=== PATIENT | male | born 1960 | race Caucasian/White ===

== ENCOUNTER 2016-08-01 18:47 | Observation (INO) | payer OTHER ==
--- NOTE | ~2016-08-01 | CR72 ---
[facility] A Service of [facility] RADIOLOGY TEXT RESULTS PATIENT: REYNOLD MARTIN LOCATION: [facility] : 60 UNIT #: [id number] AGE: [address]: Castillo Warner MD SEX: M ORDER DR: [id number] [place], [place] [address] [id number] MR#: [id number] #: [id number] NAME: REYNOLD MARTIN. : 1960 SEX: M STUDY DATE/TIME: 08/01/2016 18:23 UNIT: [facility] ROOM: [facility] STUDY DESCRIPTION: CR Chest Single View Portable Attending Physician: Castillo Warner M.D. Ordering Physician: Lobo Aguilera M.D. Primary Care Physician: Regla Treviño M.D. MEDICAL IMAGING REPORT This report is preliminary unless electronic signature is present EXAM Portable chest INDICATION Pacemaker vibrating today. PROCEDURE Frontal view of the chest COMPARISON 08/12/2010 FINDINGS Single lead pacer AICD is in place and appears to be stable. Stable cardiomegaly. There is no new dense consolidation. No visible pneumothorax. IMPRESSION 1. No active process. No appreciable change in the placement of the patient's pacemaker. 2. Stable cardiomegaly. Dictated by... Nilo Dunham M.D. THIS IS AN ELECTRONICALLY VERIFIED REPORT Nilo Dunham M.D. at 08/05/2016 7:05 AM ANGELA/charles TD: 08/02/2016 08:08 JOB #: [id number] MEDICAL IMAGING REPORT [facility] A Service of [facility] RADIOLOGY TEXT RESULTS PATIENT: REYNOLD MARTIN LOCATION: [facility] : 60 UNIT #: [id number] AGE: [address]: Castillo Warner MD SEX: M ORDER DR: Page 1 of 1 COPY
--- NOTE | ~2016-08-01 | BMI ---
[facility] Nutrition Therapy DATE: 08/02/16 Patient: REYNOLD MARTIN Physician: MIKE Address: [address] [facility] Room/Bed: [address] [place] [address], Zip: [place] [address] Admit Date: 08/01/16 Date of : 60 Height: 5 6 Weight: 278 126.4 HIGH BMI NOTE: DX: 56 Y.O. MALE ADMITTED FOR MECHANICAL PACEMAKER FAILURE ANTHROPOMETRICS: 5'7" (PER PT), WT: 278# (126 KG), BMI: 43.5 DIET: NPO INTERVENTION: 1. NPO RECOMMENDATIONS: 1. ONCE MEDICALLY FEASIBLE, ADVANCE DIET INDICATED TO HH TO PROMOTE GRADUAL WEIGHT LOSS TOWARDS HEALTHY BMI (19.0-25.0) OR +/-10%IBW RD WILL F/U PER PROTOCOL Respectfully, BREANNA SMALL MS, RD, LD [facility] cc: client file
--- NOTE | ~2016-08-01 | EKG ---
PATIENT: REYNOLD MARTIN UNIT #: [id number] Ventricular Rate: 62 BPM Atrial Rate: 64 BPM QRS Duration: 178 ms Q-T Interval: 450 ms QTC Calculation(Bezet): 456 ms Calculated R Lagrange: -74 degrees Calculated T Lagrange: 76 degrees Diagnosis Line: Ventricular-paced rhythm with occasional Diagnosis Line: supraventricular complexes and Diagnosis Line: Electronic ventricular pacemaker Diagnosis Line: Abnormal ECG Diagnosis Line: When compared with ECG of 12-AUG-2010 03:16, Diagnosis Line: Vent. rate has decreased BY 11 BPM Diagnosis Line: Confirmed by PINKY ACOSTA MD ([id number]) on 08/01/2016 Diagnosis Line: 9:23:21 PM INTERPRETING MD: DAVE TOM
--- NOTE | ~2016-08-01 | DS ---
Unit #: [id number] #: [id number] Patient: REYNOLD MARTIN [id number] [facility]. [id number] [facility]. [place], [place] [address] [id number] MR#: [id number] NAME: REYNOLD MARTIN. ROOM: 565 Age: 56 Sex: M Admission Date: 08/01/2016 : 1960 Discharge Date: Attending Physician: Castillo Warner M.D. Primary Care Physician: Regla Treviño M.D. DISCHARGE SUMMARY SHORT STAY/TRANSFER SUMMARY HISTORY OF PRESENT ILLNESS This is a 56-year-old white male who has a defibrillator and follows with Dr. Pacheco. Looking back on his records, it is for arrhythmias. He had a stent placed before 2008 in his diagonal branch of the LAD. He also some moderate disease of the LAD which was not stented. He has a history of paroxysmal atrial fibrillation and has been on Coumadin. His last echo last November showed LVEF of 55% to 60%. He is a diabetic and has hypertension, hyperlipidemia, obstructive sleep apnea, and chronic kidney disease. Patient came in because he felt his defibrillator device in the battery vibrating and buzzing. He had it last checked about six months ago, and he was told he may have to have the generator replaced this fall. He denies any chest pain or pain in his neck or bilateral jaw, shoulders, arms, or elbows. He said when the buzzing and vibrating did occur, he felt a little numbness and tingling up in his head, but as soon as it stopped buzzing and vibrating, the symptoms resolved. He denies having any dizziness, presyncope, or syncope. He denies any palpitations. He is on disability. He has been recently using a walker and crutches because he needs both his knees and hips replaced, but his plan is to try to lose about 100 pounds before this type of surgery. In the emergency room, patient's blood pressure was 169/76, heart rate 58, respirations 18, temperature 98, and O2 saturations 96% on room air. His EKG showed ventricular-paced rhythm, underlying appears to be atrial fibrillation. On patient's initial labs, his INR was 5.3. BUN was 17, creatinine 1.2, and potassium 4.1. On CBC, his platelets were 130,000, otherwise unremarkable. Patient's chest x-ray did not show anything acute. EKG as mentioned does show ventricular paced with underlying atrial fibrillation. Patient has been admitted for further evaluation and management. PAST MEDICAL HISTORY 1. Coronary artery disease with previous PCI and stent to the second diagonal branch of the LAD and moderate disease of the LAD. Last cardiac cath in 2008 showed LVEF of 70%. Left main was normal. The LAD and proximal first diagonal were normal and second diagonal stent was patent with mid LAD questionable 40% stenosis and distal left anterior descending with 70% stenosis. Left circumflex and RCA were normal. 2. A 2D echo in 2008 showed an LVEF of 30% with mild mitral regurgitation and mild tricuspid regurgitation. Last 2D echo in November 2015 showed LVEF of 55% to 60% with moderate to severely dilated left atrium, mild mitral regurgitation, and mild tricuspid Unit #: [id number] #: [id number] Patient: REYNOLD MARTIN regurgitation, with elevated RVSP of 38 mmHg. 3. Paroxysmal atrial fibrillation, on Coumadin. 4. Automatic implantable cardioverter-defibrillator in 2008. 5. Hypertension. 6. Diabetes mellitus type 2. 7. Hyperlipidemia. 8. History of nonsustained ventricular tachycardia. 9. Obstructive sleep apnea, uses CPAP. 10. Chronic kidney disease. 11. Gouty arthritis. 12. Nicotine abuse. 13. Reformed alcohol use. 14. Cardiolite stress test in November 2015 showed ejection fraction of 57% with no stress-induced ischemia and mild septal hypokinesis. 15. Obesity. Body mass index is 44 and weight 278 pounds. PAST SURGICAL HISTORY 1. Automatic implantable cardioverter-defibrillator placed in 2008. 2. Cardiac stent in 2007. HOME MEDICATIONS 1. Lopressor 150 mg p.o. twice daily. 2. Digoxin 250 mcg p.o. daily. 3. Prinivil 40 mg p.o. daily. 4. Coumadin 5 mg p.o. daily. 5. Allopurinol 300 mg p.o. daily. 6. Aspirin 81 mg p.o. daily. 7. Potassium chloride 10 mEq p.o. twice daily. 8. Lopid 600 mg p.o. twice daily. 9. Desyrel 300 mg p.o. daily. ALLERGIES No known drug allergies. SOCIAL HISTORY Patient lives with his spouse. He is on disability due to his multiple medical issues. He ambulates with crutches and also he is mostly in a wheelchair due to his needing knee replacements. He continues to smoke but said he quit a few weeks ago but smokes a half a pack of cigarettes a day. He quit drinking back in 2010. No illicit drug abuse. FAMILY HISTORY Coronary artery disease in both his parents, hypertension, and also diabetes mellitus. REVIEW OF SYSTEMS CONSTITUTIONAL: Denies fever or chills. No recent weight gain or weight loss. HEENT: Denies headache or dizziness. No visual or hearing changes. NECK: No lymphadenopathy or thyromegaly and no difficulty swallowing. CARDIOVASCULAR: Denies chest pain and denies palpitations. He does have trace pedal edema. GASTROINTESTINAL: Denies nausea, vomiting, diarrhea, or abdominal pain. NEUROLOGICAL: Had some numbness in the left side of his face when his defibrillator was buzzing and vibrating, but it resolved immediately afterwards. PHYSICAL EXAMINATION Unit #: [id number] #: [id number] Patient: REYNOLD MARTIN GENERAL: Mr. Martin is a 56-year-old white male in no acute respiratory distress. He is awake, alert, and oriented. VITAL SIGNS: Blood pressure is 133/54, heart rate 60, respirations 16, temperature 98.1, and oxygen saturations 97% on room air. NECK: Trachea midline. No thyromegaly or lymphadenopathy. Normal carotid upstrokes. No jugular venous distention. HEART: S1 and S2, regular rate and rhythm. No clicks, murmurs, or rubs. LUNGS: Diminished but otherwise clear. ABDOMEN: Obese, soft, and nontender. EXTREMITIES: Pedal pulses are palpable with 1+ pedal edema. DIAGNOSTIC STUDIES LABORATORY: Glucose is 92, BUN 17, creatinine 1.2, eGFR 67.2, sodium 139, potassium 4.1, chloride 104, CO2 of 26, calcium 8.4, total protein 6.9, albumin 3.9, bilirubin total 0.7, AST 29, ALT 33, and alkaline phosphatase is 47. TSH is 1.41. Digoxin level 0.9. WBC 7.6, hemoglobin 15.3, hematocrit 45.8, and platelets of 130,000. Initial cardiac enzymes: CK-MB is 2.1 and troponin less than 0.05; CK-MB is 2.9 and troponin less than 0.05. Pro time is 57.6 with an INR of 5.2. IMAGING: Chest x-ray shows no active process. Pacemaker in place. CT of the head without contrast shows nothing acute. CARDIOLOGY: EKG shows ventricular paced rhythm with underlying atrial fibrillation. IMPRESSION 1. End-of-life battery on automatic implantable cardioverter-defibrillator. 2. Coronary artery disease with previous percutaneous coronary intervention and stent. 3. Last 2D echocardiogram with left ventricular ejection fraction of 55% to 60% with moderate to severely dilated left atrium, mild mitral regurgitation, and mild tricuspid regurgitation, with elevated right ventricular systolic pressure of 38 mmHg. 4. Previous echocardiogram back in 2008 showed left ventricular ejection fraction of 30%. 5. Previous percutaneous coronary intervention and stent in the second diagonal branch of the left anterior descending in 2007 found patent in 2008 but had 40% and 70% lesions in the left anterior descending. 6. Paroxysmal atrial fibrillation, on Coumadin. 7. Over-anticoagulation. 8. Hypertension. 9. Diabetes mellitus type 2. 10. Hyperlipidemia. 11. History of nonsustained ventricular tachycardia. 12. Obstructive sleep apnea. 13. Chronic kidney disease. 14. Gouty arthritis. 15. Normal Lexiscan in November 2015. 16. Obesity with body mass index of 44. 17. Reformed alcohol abuse. 18. Nicotine abuse. PLAN 1. Patient's automatic implantable cardioverter-defibrillator device was interrogated and showed the battery is low and needs to be replaced. It did indicate that he did trigger notification to the patient about Unit #: [id number] #: [id number] Patient: REYNOLD MARTIN the same time that he mentioned. So, the plans are for Dr. Robert to have the generator replaced for his device as soon as possible. The patient is over-anticoagulated. Will give him a stat dose of vitamin K 5 mg and will check an INR later today. He may require some FFP. 2. On exam, there are no signs or symptoms of unstable angina or acute congestive heart failure. 3. Encouraged the patient to completely quit smoking. He does admit that he just recently quit a few weeks ago but will reinforce smoking cessation. 4. Plans are for the patient to be transferred to [facility] for replacement of his generator battery. 5. Continue patient on his Lopressor 150 mg p.o. twice daily and his digoxin and lisinopril with parameters. 6. Patient is active with Dr. Pacheco. He will follow him postoperatively. 7. Further recommendations pending. 1. Dictated by... Darlyn Euceda A.P.R.N. for Jerica Reis TD: 08/02/2016 14:33 JOB #: [id number] DISCHARGE SUMMARY Page 1 of 1 X Darlyn Euceda APRN X DISCHARGE SUMMARY
--- NOTE | ~2016-08-01 | CT71 ---
[facility] A Service of [facility] RADIOLOGY TEXT RESULTS PATIENT: REYNOLD MARTIN LOCATION: [facility] [id number] : 60 UNIT #: [id number] AGE: [address]: Castillo Warner MD SEX: M ORDER DR: [id number] [facility] [address] [facility]. [place], [place] [address] [id number] I MR#: [id number] Acc #: [id number] NAME: REYNOLD MARTIN. : 1960 SEX: M STUDY DATE/TIME: 08/01/2016 19:46 UNIT: [facility] ROOM: [facility] STUDY DESCRIPTION: CT Head Wo Contrast Attending Physician: Castillo Warner M.D. Ordering Physician: Lobo Aguilera M.D. Primary Care Physician: Regla Treviño M.D. MEDICAL IMAGING REPORT This report is preliminary unless electronic signature is present EXAM CT head without contrast INDICATION Head tingling, facial and head numbness today. PROCEDURE Unenhanced CT of the head. This CT examination was performed with one or more of the following radiation dose reduction techniques: automatic exposure control, adjustment of mA and/or kV according to patient size, and iterative reconstruction. COMPARISON None. FINDINGS No acute hemorrhage. No abnormal mass effect, extraaxial fluid collection or hydrocephalus. No definitive evidence for an acute or early subacute large territory infarct. No calvarial fracture. Paranasal sinuses, mastoid air cells clear. IMPRESSION No acute intracranial finding. Dictated by... Nilo Dunham M.D. THIS IS AN ELECTRONICALLY VERIFIED REPORT Nilo Dunham M.D. at 08/05/2016 7:05 AM ANGELA/max [facility] A Service [facility] RADIOLOGY TEXT RESULTS PATIENT: REYNOLD MARTIN LOCATION: [facility] : 60 UNIT #: [id number] AGE: [address]: Castillo Warner MD SEX: M ORDER DR: TD: 08/02/2016 08:24 JOB #: [id number] MEDICAL IMAGING REPORT Page 1 of 1 COPY
[2016-08-01 18:37] LABS: BASOPHIL# 0.1 X10e3 (0-0.3); BASOPHIL% 0.7 % (0-2.5); EOSINOPHIL# 0.2 X10e3 (0-0.7); EOSINOPHIL% 2.1 % (0.0-7.0); HEMATOCRIT 49.8 % (38.0-50.0); HEMOGLOBIN 16.4 gm/dL (13.0-16.0); LYMPHOCYTE# 1.3 X10e3 (1.0-3.5); LYMPHOCYTE% 13.4 % (17.0-45.0); MEAN CELL VOLUME 89.3 FL (83-96); MEAN CORPUSCULAR HEMOGLOBIN 29.4 PG (28-34); MEAN CORPUSCULAR HGB CONC 32.9 g/dL (30-36); MEAN PLATELET VOLUME 8.7 FL (6.5-11.5); MONOCYTE# 0.9 X10e3 (0-1.0); MONOCYTE% 9.2 % (3.0-12.0); NEUTROPHIL# 7.1 X10e3 (1.5-7.1); NEUTROPHIL% 74.6 % (40-75); PLATELET COUNT 146 X10e3 (140-420); RED BLOOD COUNT 5.58 X10e (3.90-5.60); RED CELL DISTRIBUTION WIDTH 16.6 % (11.0-15.5); WHITE BLOOD COUNT 9.5 X10e3 (4.0-10.5)
[2016-08-01 18:40] LABS: DIFF IND NO
[~2016-08-01 18:47] MED LIST: ALLOPURINOL300 MG PO; ARTHRITIS PAIN REL PO; ASPIRIN81 M1 PO; CELEBREX PO; CLONIDINE PO; COLCHICINE PO; COUMADIN PO; COUMADIN5 MG PO; GOUT MEDICINE; ISORDIL PO; KCL PO; LANOXIN125 MCG PO; LASIX PO; LIPITOR PO; LIPITOR20 MG PO; LISINOPRIL PO; LOPID600 MG PO; LOPRESSOR PO; LORTAB 7.5-5001 TAB PO; MICRO-K PO; MOBIC PO; NITROGYLCERIN SUBLINGUAL; NORVASC10 MG PO; PATIENT'S PHARMACY; PLAVIX PO; POTASSIUM99 M1 PO; PRINIVIL40 MG PO; TOPROL XL PO; TRICOR PO; ZYLOPRIM PO
[2016-08-01 18:52] LABS: POC - CKMB 2.9 ng/mL (0.0-7.9); POC - TROPONIN <0.05 ng/mL (<=0.05)
[2016-08-01 18:54] LABS: BUN/CREATININE RATIO 13.33; CALCIUM SERUM 8.6 mg/dL (8.4-10.2); CREATININE SERUM 1.2 mg/dL (0.6-1.4); GLOM FILT RATE Estimated 67.2 mL/min (>60); POTASSIUM 3.8 mmol/L (3.5-5.1)
[2016-08-01 19:02] LABS: ALBUMIN SERUM 3.9 g/dL (3.5-5.0); BILIRUBIN, DIRECT 0.2 mg/dL (0.0-0.2); BILIRUBIN,INDIRECT 0.5 mg/dL (0.0-0.9); BILIRUBIN,TOTAL 0.7 mg/dL (0.2-2.0); DIGOXIN (LANOXIN) 0.9 ng/ml (1.0-2.0); PROTEIN TOTAL SERUM 6.9 g/dL (6.0-8.3)
[2016-08-01 20:44] LABS: POC - CKMB 2.1 ng/mL (0.0-7.9); POC - TROPONIN <0.05 ng/mL (<=0.05)
[2016-08-01 21:35] LABS: PROTHROMBIN TIME (PATIENT) 58.6 SECONDS (9.6-11.5)
[2016-08-01 21:38] LABS: INR 5.3
[2016-08-01] MEDS ORDERED: LOPRESSOR PO (21:57)
[2016-08-01] MEDS ORDERED: COUMADIN5 MG PO (21:58)
[2016-08-01] MEDS ORDERED: DIGITEK125 MC1 PO (21:58)
[2016-08-01] MEDS ORDERED: PRINIVIL40 MG PO (21:58)
[2016-08-01] MEDS ORDERED: POTASSIUM CHLO10 ME1 PO (21:59)
[2016-08-01] MEDS ORDERED: LOPID600 MG PO (21:59)
[2016-08-01] MEDS ORDERED: ASPIRIN81 MG PO (21:59)
[2016-08-01] MEDS ORDERED: ALLOPURINOL300 MG PO (21:59)
[2016-08-01] MEDS ORDERED: DESYREL300 MG PO (22:00)
[2016-08-02 06:18] LABS: BASOPHIL# 0.1 X10e3 (0-0.3); BASOPHIL% 1.1 % (0-2.5); EOSINOPHIL# 0.3 X10e3 (0-0.7); EOSINOPHIL% 3.3 % (0.0-7.0); HEMATOCRIT 45.8 % (38.0-50.0); HEMOGLOBIN 15.3 gm/dL (13.0-16.0); LYMPHOCYTE# 1.6 X10e3 (1.0-3.5); LYMPHOCYTE% 20.4 % (17.0-45.0); MEAN CORPUSCULAR HEMOGLOBIN 29.8 PG (28-34); MEAN CORPUSCULAR HGB CONC 33.4 g/dL (30-36); MEAN PLATELET VOLUME 8.9 FL (6.5-11.5); MONOCYTE# 0.7 X10e3 (0-1.0); MONOCYTE% 8.9 % (3.0-12.0); NEUTROPHIL% 66.3 % (40-75); PLATELET COUNT 130 X10e3 (140-420); RED BLOOD COUNT 5.14 X10e (3.90-5.60); RED CELL DISTRIBUTION WIDTH 16.5 % (11.0-15.5); WHITE BLOOD COUNT 7.6 X10e3 (4.0-10.5)
[2016-08-02 06:22] LABS: DIFF IND NO
[2016-08-02 06:39] LABS: PROTHROMBIN TIME (PATIENT) 57.6 SECONDS (9.6-11.5)
[2016-08-02 06:43] LABS: INR 5.2
[2016-08-02 07:11] LABS: BUN/CREATININE RATIO 14.16; CALCIUM SERUM 8.4 mg/dL (8.4-10.2); CREATININE SERUM 1.2 mg/dL (0.6-1.4); GLOM FILT RATE Estimated 67.2 mL/min (>60); POTASSIUM 4.1 mmol/L (3.5-5.1)
== END 2016-08-02 15:44 ==
LOC: CED 18:47 → CEDOF 20:33 → C5C 22:12
PROVIDERS: Emergency Medicine
DX: Z45.02 Encounter for adjustment and management of automatic implantable cardiac defibrillator (principal); I25.10 Atherosclerotic heart disease of native coronary artery without angina pectoris; Z95.5 Presence of coronary angioplasty implant and graft; I08.1 Rheumatic disorders of both mitral and tricuspid valves; I48.0 Paroxysmal atrial fibrillation; Z79.01 Long term (current) use of anticoagulants; F17.210 Nicotine dependence, cigarettes, uncomplicated; I12.9 Hypertensive chronic kidney disease with stage 1 through stage 4 chronic kidney disease, or unspecified chronic kidney disease; E11.22 Type 2 diabetes mellitus with diabetic chronic kidney disease; N18.9 Chronic kidney disease, unspecified; E78.5 Hyperlipidemia, unspecified; G47.33 Obstructive sleep apnea (adult) (pediatric); M10.9 Gout, unspecified; E66.9 Obesity, unspecified; Z68.41 Body mass index [BMI] 40.0-44.9, adult
CPT/HCPCS: 36415; 70450; 71010; 80048; 80061; 80076; 80162; 82553; 82947; 84443; 84484; 85025; 85610; 93005; 94760; 99284; G0378; J3430